=== PATIENT | female | born 1960 | race Caucasian/White ===

== ENCOUNTER 2020-09-19 07:41 | Day surgery (SDC) | payer OTHER, SELFPAY ==
[~2020-09-19] VITALS: Ht 157.5 cm; Wt 56.7 kg
[2020-09-19] MEDS ORDERED: diphenhydrAMINE 50 MG/ML VIAL ONE (09:57)
[2020-09-19] MEDS ORDERED: MIDAZOLAM 2 MG/2 ML VIAL ONE ×2 (09:57)
[2020-09-19] MEDS ORDERED: fentaNYL citrate 0.05 MG/ML VIAL ONE (09:58)
[2020-09-19] MEDS ORDERED: LIDOCAINE 2% 100 MG/5 ML UJET TP ONE ×2 (09:58→14:05)
[2020-09-19] MEDS ORDERED: fentaNYL citrate 0.05 MG/ML VIAL IVP ONE (13:45)
[2020-09-19] MEDS ORDERED: LACTATED RINGERS 1,000 ML IV SCH (13:45)
[2020-09-19] MEDS ORDERED: diphenhydrAMINE 50 MG/ML VIAL IVP ONE (13:45)
[2020-09-19] MEDS ORDERED: MIDAZOLAM 2 MG/2 ML VIAL IVP ONE (13:45)
== END 2020-09-19 12:20 | disposition home or self-care (01) ==
LOC: MMU 07:41 → MOR 07:41
PROVIDERS: ATTEND Internal Medicine Gastroenterology
DX: Z12.11 Encounter for screening for malignant neoplasm of colon (principal); K27.9 Peptic ulcer, site unspecified, unspecified as acute or chronic, without hemorrhage or perforation; Z87.891 Personal history of nicotine dependence; Z20.828 Contact with and (suspected) exposure to other viral communicable diseases; Z79.899 Other long term (current) drug therapy
CPT/HCPCS: 43239; 45378; 88305; 88312; 88313; 88342; J1200; J2250; J3010; J7030; J7120; U0003